=== PATIENT | female | born 1960 | race Caucasian/White ===

== ENCOUNTER 2018-05-25 12:53 | Emergency (ER) | payer SELFPAY ==
--- NOTE | 2018-05-25 13:39 | ED ---
Respiratory - HPI Summary HPI Summary: This patient is a 57 year old F presenting to [facility] with a chief complaint of respiratory problems since yesterday morning. She states she may have pneumonia. She reports a nausea, chills, cough, upper chest pain, headache, and rhinorrhea. She also states she has had dyspnea and dizziness. The patient states she currently has a hernia. She states she has had some sputum when she coughs. - History of Current Complaint Chief Complaint: EDShortnessOfBreath Stated Complaint: COUGH/FEVER/NAUSEA/CHILLS Time Seen by Provider: 05/25/18 13:25 Hx Obtained From: Patient Initial Severity: Moderate Current Severity: Moderate Pain Intensity: 7 Character: Dyspnea at Rest Sputum Amount: Small Associated Signs and Symptoms: SOB, Chest Pain with Cough, Chills, Nasal Congestion, Dyspnea - Allergy/Home Medications Allergies/Adverse Reactions: Allergies Allergy/AdvReac Type Severity Reaction Status Date / Time bee venom protein (honey bee) Allergy Swelling Verified 05/25/18 13:04 dipyridamole Allergy Anaphylatic Verified 05/25/18 13:04 [From Persantine] Shock morphine Allergy Agitation Verified 05/25/18 13:04 PMH/Surg Hx/FS Hx/Imm Hx Respiratory History: Reports: Hx Asthma GI History: Reports: Other GI Disorders - HERNIA CAUSES EXTREME GAS AND PAIN Neurological History: Reports: Other Neuro Impairments/Disorders - MIGRAINES - Surgical History Surgery Procedure, Year, and Place: VERTICAL BANDED GASTROPLASTY. CHOLECYSTECTOMY 1989. BILAT KNEES EUAs 1998. TONSILS. TUBAL LIGATION 1986 Infectious Disease History: No Infectious Disease History: Denies: Traveled Outside the [place] in Last 30 Days - Family History Known Family History: Negative: Cardiac Disease, Hypertension, Diabetes - Social History Alcohol Use: None Substance Use Type: Reports: None Smoking Status (MU): Current Every Day Smoker Review of Systems Positive: Chills Positive: Nasal Discharge Positive: Chest Pain Positive: Shortness Of Breath, Cough Positive: Nausea Positive: Headache All Other Systems Reviewed And Are Negative: Yes Physical Exam - Summary Physical Exam Summary: VITAL SIGNS: Reviewed. GENERAL: Patient is a well-developed and nourished FEMALE who is lying comfortable in the stretcher. Patient is not in any acute respiratory distress. HEAD AND FACE: No signs of trauma. No ecchymosis, hematomas or skull depressions. No sinus tenderness. EYES: PERRLA, EOMI x 2, No injected conjunctiva, no nystagmus. EARS: Hearing grossly intact. Ear canals and tympanic membranes are within normal limits. MOUTH: Oropharynx within normal limits. NECK: Supple, trachea is midline, no adenopathy, no JVD, no carotid bruit, no c- spine tenderness, neck with full ROM. CHEST: Symmetric, no tenderness at palpation LUNGS: coarse breath sounds bilaterally. No wheezing or crackles. CVS: Regular rate and rhythm, S1 and S2 present, no murmurs or gallops appreciated. ABDOMEN: Soft, non-tender. No signs of distention. No rebound no guarding, and no masses palpated. Bowel sounds are normal. Ventral hernia reproducible. EXTREMITIES: FROM in all major joints, no edema, no cyanosis or clubbing. NEURO: Alert and oriented x 3. No acute neurological deficits. Speech is normal and follows commands. SKIN: Dry and warm Triage Information Reviewed: Yes Vital Signs On Initial Exam: Initial Vitals Temp Pulse Resp BP Pulse Ox 97.8 F 107 22 103/57 92 05/25/18 12:56 05/25/18 12:56 05/25/18 12:56 05/25/18 12:56 05/25/18 12:56 Vital Signs Reviewed: Yes Diagnostics - Vital Signs Vital Signs Temp Pulse Resp BP Pulse Ox 05/25/18 12:56 97.8 F 107 22 103/57 92 - Laboratory Result Diagrams: 05/25/18 13:52 05/25/18 13:52 Lab Statement: Any lab studies that have been ordered have been reviewed, and results considered in the medical decision making process. - Radiology CXR Radiology Interpretation Completed By: Radiologist Summary of Radiographic Findings: No active cardiopulmonary disease. ED Provider has reviewed this report. - EKG 1335 Cardiac Rate: NL EKG Rhythm: Sinus Rhythm - [address] Segment: Normal Ectopy: None Summary of EKG Findings: No ST elevation. Re-Evaluation - Re-Evaluation First Eval Re-Evaluation Time: 16:12 Change: Unchanged Comment: Discussed results and plan for discharge with patient. Disposition - Course Assessment/Plan: Blood work without any significant abnormality, except for glucose of 125, CRP of 129, creatinine 1.0 to an influenza A is positive. In the ED course the patient was given IV fluids and Toradol for the pain. Chest x -ray impression shows no acute cardiopulmonary pathology. ABG shows a pH of 7.42, PCO2 41, PO2 1:30 and O2 sat 98.9. Patient will be discharged home with a prescription for Tamiflu. I discussed all the findings and test results with the patient. Patient was instructed to return to the emergency room immediately if any of the symptoms return or worsens. Plan of care was discussed with the patient and understands and agrees. All questions were answered at patient satisfaction. There were no further complaints or concerns. Lung exam before discharge: CTA B/L. Good air exchange. No wheezing or crackles heard. CVS: S1 and S2 present. No murmurs appreciated. Patient is alert and oriented x 3. Patient is hemodynamically stable. Patient will be discharged home with follow up PCP in the next 2-3 days - Diagnoses Provider Diagnoses: Influenza A Discharge - Sign-Out/Discharge Documenting (check all that apply): Patient Departure - Discharge Patient Received Moderate/Deep Sedation with Procedure: No - Discharge Plan Condition: Stable Disposition: HOME Prescriptions: Oseltamivir CAP* [Tamiflu CAP*] 75 mg PO BID #10 cap Patient Education Materials: Influenza (ED) Referrals: [facility] [Outside] Additional Instructions: Return to ED with any new or worsening symptoms. - Billing Disposition and Condition Condition: STABLE Disposition: Home - Attestation Statements Document Initiated by José Miguel: Yes Documenting Scribe: Gene Chua Provider For Whom José Miguel is Documenting (Include Credential): Danish Covington MD Scribe Attestation: Gene Kim scribed for Danish Covington MD on 05/26/18 at 0834. Scribe Documentation Reviewed: Yes Provider Attestation: The documentation as recorded by the Gene hayden accurately reflects the service I personally performed and the decisions made by me, Danish Covington MD Status of Scribe Document: Viewed
[2018-05-25 14:01] LABS: ABS Basophils 0 10^3/ul (0-0.2); ABS Eosinophils 0 10^3/ul (0-0.6); ABS Lymphocytes 0.7 10^3/ul (1.0-4.8); ABS Monocytes 0.7 10^3/ul (0-0.8); ABS Neutrophils 4.5 10^3/ul (1.5-7.7); ABS Nucleated RBC 0 10^3/ul; Eosinophil % 0 %; Hematocrit 41 % (35-47); Hemoglobin 13.6 g/dl (12.0-16.0); Lymphocyte % 11.4 %; Mean Corpuscular HGB Conc 33 g/dl (31-36); Mean Corpuscular Hemoglobin 29 pg (27-31); Mean Corpuscular Volume 86 fL (80-97); Mean Platelet Volume 8.8 fL (7.4-10.4); Nucleated Red Blood Cells % 0; Platelet Count 197 10^3/ul (150-450); Red Blood Count 4.71 10^6/ul (4.00-5.40); Red Cell Distribution Width 13 % (10.5-15); White Blood Count 5.9 10^3/ul (3.5-10.8)
[2018-05-25 14:37] LABS: Troponin I 0.01 ng/mL (<0.04)
[2018-05-25 14:38] LABS: Albumin 3.8 g/dL (3.2-5.2); Albumin/Globulin Ratio 1.5 (1-3); BUN/Creatinine Ratio 19.6 (8-20); C Reactive Protein 129.84 mg/L (<8.01); Calcium 8.8 mg/dL (8.6-10.3); EGFR African American 67.1 (>60); EGFR Non-African American 55.5 (>60); Globulin 2.6 g/dL (2-4); Potassium 3.7 mmol/L (3.5-5.0); Total Bilirubin 0.5 mg/dL (0.2-1.0); Total Protein 6.4 g/dL (6.4-8.9)
[2018-05-25 15:03] LABS: Influenza A Molecular POSITIVE (Negative)
[2018-05-25] MEDS ORDERED: Ibuprofen TAB* 800 MG PO ONE (15:08)
[2018-05-25 16:33] VITALS: BP 106/65
== END 2018-05-25 16:32 | disposition home or self-care (01) ==
LOC: ED 12:53
DX: J11.1 Influenza due to unidentified influenza virus with other respiratory manifestations (principal); R06.02 Shortness of breath; R07.9 Chest pain, unspecified; R05 Cough; R09.81 Nasal congestion; R06.00 Dyspnea, unspecified; Z88.6 Allergy status to analgesic agent; F17.210 Nicotine dependence, cigarettes, uncomplicated
CPT/HCPCS: 36415; 71046; 80053; 82803; 83605; 83880; 84484; 85025; 86140; 87040; 93005; 99283

== ENCOUNTER 2022-06-14 13:38 | Observation (INO) ==
[2022-06-14] MEDS ORDERED: Ondansetron ODT 4 mg TAB 4 MG TAB PO ONE (15:19)
[2022-06-14 15:50] LABS: ABS Basophils 0.1 10^3/ul (0-0.2); ABS Eosinophils 0.1 10^3/ul (0-0.6); ABS Lymphocytes 2.6 10^3/ul (1.0-4.8); ABS Neutrophils 11.3 10^3/ul (1.5-7.7); Eosinophil % 0.4 %; Hematocrit 49 % (35-47); Hemoglobin 16.4 g/dL (12.0-16.0); Mean Corpuscular HGB Conc 33 g/dL (31-36); Mean Corpuscular Hemoglobin 28 pg (27-31); Mean Corpuscular Volume 85 fL (80-97); Mean Platelet Volume 9.3 fL (7.4-10.4); Nucleated Red Blood Cells % 0.1; Platelet Count 311 10^3/uL (150-450); Red Blood Count 5.81 10^6 /uL (3.70-4.87); Red Cell Distribution Width 14 % (10-15); White Blood Count 15.1 10^3/uL (3.5-10.8)
[2022-06-14 16:53] LABS: ALT 21 U/L (7-52); AST 18 U/L (13-39); Albumin 4.3 g/dL (3.2-5.2); Albumin/Globulin Ratio 1.5 (1-3); Alkaline Phosphatase 96 U/L (35-149); Anion Gap 10 mmol/L (2-11); Blood Urea Nitrogen 17 mg/dL (6-24); C Reactive Protein 18.62 mg/L (<8.01); CO2 Carbon Dioxide 26 mmol/L (22-32); Calcium 9.8 mg/dL (8.6-10.3); Chloride 103 mmol/L (101-111); Globulin 2.9 g/dL (2-4); Glucose 112 mg/dL (70-100); Lipase < 10 U/L (11.0-82.0); Potassium 4.2 mmol/L (3.5-5.0); Sodium 139 mmol/L (135-145); Total Protein 7.2 g/dL (6.4-8.9); eGFR CKD-EPI 71.4 (>60)
[2022-06-14] MEDS ORDERED: Iohexol 350 (CONTRAST) 500 ML MDV IV ONE (17:23)
[2022-06-14] MEDS ORDERED: Lactated Ringers 1000 ml BAG 1,000 ML IV ONE (19:17)
[2022-06-14] MEDS ORDERED: Ondansetron 4 mg VIAL 2 MG/ML 2 ml VIAL IV PRN (19:20)
[2022-06-14] MEDS: Enoxaparin 40 MG/0.4 ML SYR SUBCUT SCH (19:58)
[2022-06-14] MEDS: Acetaminophen IV 1 GM/100ML 1,000 MG/100 ML BAG IV PRN (20:24)
[2022-06-14] MEDS: Lactated Ringers 1000 ml BAG 1,000 ML IV SCH (22:29)
[2022-06-15 05:53] LABS: ABS Basophils 0.1 10^3/ul (0-0.2); ABS Eosinophils 0.1 10^3/ul (0-0.6); ABS Lymphocytes 3.7 10^3/ul (1.0-4.8); ABS Monocytes 0.9 10^3/ul (0-0.8); ABS Neutrophils 6.3 10^3/ul (1.5-7.7); Eosinophil % 1.3 %; Hematocrit 43 % (35-47); Hemoglobin 14.1 g/dL (12.0-16.0); Lymphocyte % 32.7 %; Mean Corpuscular HGB Conc 33 g/dL (31-36); Mean Corpuscular Hemoglobin 28 pg (27-31); Mean Corpuscular Volume 86 fL (80-97); Mean Platelet Volume 9.1 fL (7.4-10.4); Nucleated Red Blood Cells % 0.1; Platelet Count 252 10^3/uL (150-450); Red Blood Count 4.97 10^6 /uL (3.70-4.87); Red Cell Distribution Width 14 % (10-15); White Blood Count 11.2 10^3/uL (3.5-10.8)
[2022-06-15 06:19] LABS: C Reactive Protein 15.75 mg/L (<8.01); Calcium 8.8 mg/dL (8.6-10.3); Creatinine, Serum 0.8 mg/dL (0.51-0.95); Magnesium 1.9 mg/dL (1.9-2.7); Potassium 3.9 mmol/L (3.5-5.0); eGFR CKD-EPI 82.2 (>60)
[2022-06-15] MEDS: Lactated Ringers 1000 ml BAG 1,000 ML IV SCH ×2 (07:00→15:17)
[2022-06-15] MEDS: Acetaminophen IV 1 GM/100ML 1,000 MG/100 ML BAG IV PRN ×2 (08:09→20:55)
[2022-06-15 08:14] LABS: Urine Appearance Cloudy; Urine Bilirubin Negative (Negative); Urine Blood 1+ (Negative); Urine Color Amber; Urine Glucose Negative (Negative); Urine Ketones 1+ (Negative); Urine Nitrite Negative (Negative); Urine Protein 1+(30 mg/dL) (Negative); Urine Urobilinogen Negative (Negative)
[2022-06-15 08:15] LABS: Urine Bacteria Absent (Absent); Urine Red Blood Cell 2+(6-10/hpf) (Absent); Urine Squamous Epithelial Cell Present (Absent); Urine White Blood Cell 1+(6-10/hpf) (Absent)
[2022-06-15 08:16] LABS: Urine Specific Gravity > 1.060 (1.002-1.030)
[2022-06-15] MEDS ORDERED: Diatrizoate Meg/Sod(CONTRAST) 30 ML ORAL.SOLN PO ONE (11:23)
[2022-06-15] MEDS: Enoxaparin 40 MG/0.4 ML SYR SUBCUT SCH (20:54)
[2022-06-16] MEDS: Lactated Ringers 1000 ml BAG 1,000 ML IV SCH (01:04)
[2022-06-16 05:47] LABS: ABS Basophils 0.1 10^3/ul (0-0.2); ABS Eosinophils 0.1 10^3/ul (0-0.6); ABS Lymphocytes 2.7 10^3/ul (1.0-4.8); ABS Monocytes 0.7 10^3/ul (0-0.8); ABS Neutrophils 4.3 10^3/ul (1.5-7.7); Eosinophil % 1.5 %; Hematocrit 41 % (35-47); Hemoglobin 13.3 g/dL (12.0-16.0); Lymphocyte % 34.4 %; Mean Corpuscular HGB Conc 33 g/dL (31-36); Mean Corpuscular Hemoglobin 28 pg (27-31); Mean Corpuscular Volume 87 fL (80-97); Platelet Count 235 10^3/uL (150-450); Red Blood Count 4.69 10^6 /uL (3.70-4.87); Red Cell Distribution Width 13 % (10-15); White Blood Count 7.8 10^3/uL (3.5-10.8)
[2022-06-16 06:02] LABS: Calcium 8.5 mg/dL (8.6-10.3); Creatinine, Serum 0.72 mg/dL (0.51-0.95); Potassium 3.7 mmol/L (3.5-5.0); eGFR CKD-EPI 93.3 (>60)
[2022-06-16 19:23] VITALS: BP 143/73
== END 2022-06-16 19:35 | disposition home or self-care (01) ==
LOC: ED 13:38 → EDHOLD 13:38 → SSU 22:44
PROVIDERS: ADMIT Surgery Surgical Critical Care; ATTEND Surgery Surgical Critical Care